=== PATIENT | female | born 1990 | race Caucasian/White ===

== ENCOUNTER 2018-06-12 09:29 | Emergency (ER) | payer OTHER ==
[~2018-06-12] VITALS: Ht 167.6 cm; Wt 88.0 kg
[2018-06-12 09:31] VITALS: BP 145/115
--- NOTE | 2018-06-12 09:42 | NUR ---
C/O CONTRACTIONS EVERY 10-15 MINUTES SINCE THIS MORNING, +12 WEEKS . . DENIES N/V/D; SKIN IS PINK/WARM/DRY; AAOX4 WITH EVEN AND STEADY GAIT; LUNGS CLEAR BL; HR EVEN AND REGULAR;PUT PT ON BEDSIDE MONITOR SHOWS SR 80S, BP 131/78. O2 SATS 98%. PT DENIES ANY FEVER, CP, SOB, OR COUGH AT THIS TIME; PATIENT STATES PAIN OF 7/10 AT THIS TIME; VSS; PATIENT POSITIONED FOR COMFORT; HOB ELEVATED; BEDRAILS UP X2; BED DOWN. ER MD MADE AWARE OF PT STATUS.
[2018-06-12 10:41] LABS: BASOPHILS % (AUTO) 0.1 % (0.0-2.0); EOSINOPHILS % (AUTO) 0.5 % (0.0-4.0); HEMOGLOBIN 12.1 g/dL (12.0-16.0); LYMPHOCYTES # (AUTO) 1.6 K/uL (2.5-16.5); MEAN CORPUSCULAR HEMOGLOBIN 30 pg (27-31); MEAN CORPUSCULAR HGB CONC 34 g/dL (33-37); MEAN CORPUSCULAR VOLUME 87.5 fL (80-94); MONOCYTES # (AUTO) 0.4 K/uL (0.8-1.0); MONOCYTES % (AUTO) 4.6 % (1.7-9.3); NEUTROPHILS # (AUTO) 6.8 K/uL (1.8-7.7); NEUTROPHILS % (AUTO) 76.8 % (42.2-75.2); PLATELET COUNT (AUTO) 209 K/uL (140-450); RED BLOOD CELL COUNT(AUTO) 4.01 MIL/uL (4.20-5.40); RED CELL DISTRIBUTION WIDTH 13.8 % (11.6-13.7); WHITE BLOOD COUNT (AUTO) 8.9 K/uL (4.8-10.8)
[2018-06-12 10:46] LABS: APPEARANCE,URINE SL CLOUDY (CLEAR); BILIRUBIN,URINE NEGATIVE (NEGATIVE); BLOOD, URINE 1+ (NEGATIVE); COLOR,URINE YELLOW (YELLOW); LEUKOCYTE ESTERASE ,URINE 1+ (NEGATIVE); NITRITE, URINE NEGATIVE (NEGATIVE); UGLUCOSE NEGATIVE (NEGATIVE)
--- NOTE | 2018-06-12 10:50 | NUR ---
pt stated she feels better. no s/s of respiratory or discomfort noted.
[2018-06-12 10:57] LABS: RBC,URINE 0-5 (RARE) /HPF (0-5); WBC,URINE 0-5 (RARE) /HPF (0-5)
[2018-06-12 11:00] LABS: CALCIUM OXALATE CRYSTALS,UR 0-10 /HPF (None Seen)
[2018-06-12 12:07] VITALS: BP 106/63
--- NOTE | 2018-06-12 12:08 | NUR ---
Patient discharged with v/s stable. Written and verbal after care instructions given and explained. Patient verbalized understanding. Ambulatory with steady gait. All questions addressed prior to discharge. Advised to follow up with PMD.
== END 2018-06-12 12:08 | disposition home or self-care (01) ==
LOC: MED 09:29
DX: O26.891 Other specified pregnancy related conditions, first trimester (principal); O99.281 Endocrine, nutritional and metabolic diseases complicating pregnancy, first trimester; R10.9 Unspecified abdominal pain; E86.0 Dehydration; Z3A.12 12 weeks gestation of pregnancy
CPT/HCPCS: 36415; 76801; 81001; 81025; 84702; 85025; 86900; 86901; 87086; 99285; Q0092

== ENCOUNTER 2021-04-28 09:49 | Emergency (ER) | payer OTHER, SELFPAY ==
[~2021-04-28] VITALS: Ht 167.6 cm; Wt 94.8 kg
[2021-04-28 10:31] VITALS: BP 134/88
--- NOTE | 2021-04-28 10:37 | NUR ---
TENT 3.
[2021-04-28] MEDS ORDERED: BACITRACIN OINT 500 UNITS/GM PKT TP ONE (11:35)
--- NOTE | 2021-04-28 11:37 | NUR ---
BACITRACIN PLACED PER EMT AT THIS TIME.
--- NOTE | 2021-04-28 11:43 | NUR ---
APPLIED BACITRACIN ON TOP OF HEAD WITHOUT ANY ISSUES
--- NOTE | 2021-04-28 12:00 | NUR ---
Patient discharged with v/s stable. Written and verbal after care instructions given and explained. Patient verbalized understanding. Ambulatory with steady gait. All questions addressed prior to discharge. Advised to follow up with PMD. NO NURSING CARE OR INTERVENTIONS PROVIDED.
[2021-04-28] MEDS: BACITRACIN OINT 500 UNITS/GM PKT TP ONE (12:19)
== END 2021-04-28 12:00 | disposition home or self-care (01) ==
LOC: MED 09:49
DX: S01.00XA Unspecified open wound of scalp, initial encounter (principal); X58.XXXA Exposure to other specified factors, initial encounter; Y93.89 Activity, other specified; Y92.89 Other specified places as the place of occurrence of the external cause; Y99.8 Other external cause status
CPT/HCPCS: 99282